=== PATIENT | male | born 2000 | race Caucasian/White ===

== ENCOUNTER 2018-03-29 16:06 | Emergency (ER) | payer BC, OTHER ==
[~2018-03-29] VITALS: Ht 188 cm; Wt 86.2 kg
[2018-03-29] MEDS ORDERED: NAPROSYN500 MG PO (17:27)
[2018-03-29 17:54] VITALS: BP 129/83
== END 2018-03-29 18:04 | disposition home or self-care (01) ==
LOC: ER 16:06
DX: S93.602A Unspecified sprain of left foot, initial encounter (principal); M25.461 Effusion, right knee; X58.XXXA Exposure to other specified factors, initial encounter; Y93.89 Activity, other specified; Y92.89 Other specified places as the place of occurrence of the external cause; Y99.8 Other external cause status